=== PATIENT | male | born 1960 | race Caucasian/White ===

== ENCOUNTER 2018-10-15 08:22 | Outpatient (REF) | payer SELFPAY ==
[2018-10-15 19:40] LABS: BUN 21 mg/dL (7-18); CREATININE 0.94 mg/dL (0.70-1.30); Calcium 8.7 mg/dL (8.5-10.1); Chloride 102 mmol/L (98-107); Glucose 116 mg/dL (70-100); Potassium 4.6 mmol/L (3.5-5.1); Sodium 139 mmol/L (136-145)
[2018-10-15 19:59] LABS: Cholesterol 262 mg/dL (50-200); HDL Cholesterol 51 mg/dL (40-60); LDL CHOLESTEROL 187 mg/dL (<100); Triglyceride 69 mg/dL (30-150)
== END 2018-10-15 08:42 ==
LOC: NCHCN 08:22
PROVIDERS: PCP Internal Medicine; Visit Provider Physician Assistant Medical
DX: Z13.220 Encounter for screening for lipoid disorders (principal); Z13.228 Encounter for screening for other metabolic disorders; Z13.6 Encounter for screening for cardiovascular disorders
CPT/HCPCS: 80048; 80061; 83721

== ENCOUNTER 2025-06-04 11:33 | Outpatient (REF) | payer SELFPAY ==
[2025-06-04 18:48] LABS: HCT 47.0 % (40.0-50.0); HGB 15.3 g/dL (13.5-17.5); MCH 28.9 pg (27.0-33.0); MCHC 32.6 % (32.0-36.0); MCV 89 fL (80-95); MPV 10.2 fL (8.0-11.0); Platelet Count 246 10^3/uL (130-400); RBC 5.29 10^6/uL (4.36-5.78); RDW 12.1 % (11.8-14.1); RDW-SD 39.7 fL; WBC 6.03 10^3/uL (4.4-10.8)
== END 2025-06-04 11:34 | disposition home or self-care (01) ==
LOC: NCHCN 11:33
PROVIDERS: PCP Internal Medicine; Visit Provider Nurse Practitioner
DX: K92.1 Melena (principal)
CPT/HCPCS: 85027